=== PATIENT | female | born 1955 | race Hispanic/Latino ===

== ENCOUNTER 2017-03-29 10:57 | Outpatient (CLI) | payer BC ==
--- NOTE | 2017-03-29 16:01 | Mammography Report ---
BILATERAL DIGITAL SCREENING MAMMOGRAM with CAD: 03/29/17 10:57:00 CLINICAL: Routine screening. COMPARISON: 03/28/16 FINDINGS: There are bilateral scattered areas of fibroglandular density.No mass, architectural distortion or suspicious calcifications. IMPRESSION: No mammographic evidence of malignancy. BI-RADS CATEGORY: 1 -- Negative RECOMMENDATION: Routine mammographic screening in one year. COMMENT: Patient follow-up letters are generated by our [employer] application.
== END 2017-03-29 10:58 | disposition home or self-care (01) ==
LOC: SPVWC 10:57
PROVIDERS: ATTEND Obstetrics & Gynecology
DX: Z12.31 Encounter for screening mammogram for malignant neoplasm of breast (principal)
CPT/HCPCS: 77067; G0202

== ENCOUNTER 2018-04-04 10:28 | Outpatient (CLI) | payer BC ==
--- NOTE | 2018-04-04 16:20 | Mammography Report ---
BILATERAL DIGITAL SCREENING MAMMOGRAM with CAD: 04/04/18 10:28:00 CLINICAL: Routine screening. COMPARISON: 03/29/17 FINDINGS: There are bilateral scattered areas of fibroglandular density.No mass, architectural distortion or suspicious calcifications. IMPRESSION: No mammographic evidence of malignancy. BI-RADS CATEGORY: 1 -- Negative RECOMMENDATION: Routine mammographic screening in one year. COMMENT: Patient follow-up letters are generated by our [employer] application.
== END 2018-04-04 10:29 | disposition home or self-care (01) ==
LOC: SPVWC 10:28
PROVIDERS: ATTEND Obstetrics & Gynecology
DX: Z12.31 Encounter for screening mammogram for malignant neoplasm of breast (principal)
CPT/HCPCS: 77067

== ENCOUNTER 2021-04-14 10:45 | Outpatient (CLI) | payer MEDICARE ==
--- NOTE | 2021-04-14 15:32 | Mammography Report ---
DEXA BONE DENSITY SCAN INDICATION / CLINICAL INFORMATION: OTHER DISORDER OF BONE DENSITY M85.89. 65 years Female COMPARISON: DEXA scan dated 03/25/2015. RIGHT FOREARM: - Bone mineral density (BMD) = 0.625 g/cm2. - T-score = 1.2 - Z-score = 3.0 Change (%) since most recent prior (if available): None available. LEFT HIP, NECK : - Bone mineral density (BMD) = 0.866 g/cm2. - T-score = 0.2 - Z-score = 1.7 Change (%) since most recent prior (if available): -1.2 IMPRESSION: 1. WHO Classification: Normal bone density. Fracture Risk: Not Increased. Note: 10-Year Fracture Risk (FRAX) not reported. This DEXA unit lacks FRAX functionality. BMD Reporting Guidelines (ISCD, 2015) BMD Reporting in Postmenopausal Women and in Men Age 50 and Older - T-scores are preferred. - The WHO densitometric classification is applicable. BMD Reporting in Females Prior to Menopause and in Males Younger Than Age 50 - Z-scores, not T-scores, are preferred. This is particularly important in children. - A Z-score of -2.0 or lower is defined as below the expected range for age, and a Z-score above -2.0 is within the expected range for age. - Osteoporosis cannot be diagnosed in men under age 50 on the basis of BMD alone. - The WHO diagnostic criteria may be applied to women in the menopausal transition. http://www.iscd.org/official-positions/0379-sflj-pgpcgsfh-positions-adult/ Signer Name: Stevie Mcginnis MD Signed: 04/14/2021 3:27 PM Workstation Name: [id number]
--- NOTE | 2021-04-15 07:45 | Mammography Report ---
DIGITAL SCREENING MAMMOGRAM WITH CAD, 04/14/2021 CLINICAL INFORMATION / INDICATION: Routine screening mammography. SCREENING TECHNIQUE: Digital bilateral 2D mammography was obtained in the craniocaudal and mediolateral obliqu e projections. This examination was interpreted with the benefit of Computer-Aided Detection analysis . COMPARISON: 04/13/2020 FINDINGS: Breast Density: There are scattered areas of fibroglandular density. No dominant mass, suspicious calcifications, or architectural distortion in either breast. IMPRESSION: No mammographic evidence of malignancy. Follow up recommendation: Routine yearly BI-RADS Category 1: Negative. A "normal" or negative report should not discourage follow up or biopsy of a clinically significant f inding. A written summary of these findings will be mailed to the patient. The patient will be entered into a mammography reporting system which will generate a reminder letter for the patient's next appointmen t at the appropriate interval. The [employer] recommends yearly mammograms starting at age 40 and continuing as l qing as a woman is in good health. Breast MRI is recommended for women with an approximate 20-25% or greater lifetime risk of breast cancer, including women with a strong family history of breast or ova deidra cancer or who have been treated for Hodgkin's disease. Signer Name: Carlos Unger MD Signed: 04/15/2021 7:40 AM Workstation Name: [id number]
== END 2021-04-14 10:46 | disposition home or self-care (01) ==
LOC: SPVWC 10:45
PROVIDERS: ATTEND Obstetrics & Gynecology
DX: Z12.31 Encounter for screening mammogram for malignant neoplasm of breast (principal); M85.89 Other specified disorders of bone density and structure, multiple sites
CPT/HCPCS: 77063; 77067; 77080